=== PATIENT | female | born 1935 | race Caucasian/White ===

== ENCOUNTER 2017-06-30 16:02 | Observation (INO) | payer OTHER ==
[~2017-06-30 16:02] MED LIST: AMITIZA8 MC1 PO; ASPIRIN CHILDRE81 MG PO; ASPIRIN81 M4 PO; BENTYL20 M1 PO; CALCIUM600 M3 PO; CIPRO 500MG TA500 MG PO; CIPRO500 M1 PO; COLACE100 MG PO; DICYCLOMINE HCL10 M1 PO; DOLOBID500 MG PO; DOXYCYCLINE MO100 MG PO; FIBER CHOICE1 CTB PO; FIBER500 MG PO; FLAGYL500 MG PO; FUROSEMIDE20 MG PO; HYDRALAZINE HCL25 M1 PO; MIRALAX17 GM PO; MOXIFLOXACIN H400 M1 PO; MYCOSTATIN SUS.60 ML PO; OMEPRAZOLE20 M2 PO; OMEPRAZOLE20 MG PO; PERCOCET 325 MG1 TA2 PO; PROBIOTIC FORM1 EACH PO; PYRIDIUM200 M1 PO; SENNA PLUS 50 M1 TAB PO; SPIRIVA 18 MCG18 MCG IH; SPIRIVA18 MCG INH; TRAMADOL HCL50 M1 PO; TRAMADOL50 MG PO; VESICARE10 MG PO; VICODIN5-300 PO; VITAMIN B-121000 MC3 PO; VITAMIN D1000 IU PO; VITAMIN D1000 UNIT PO; VITAMIN D400 IU PO
--- NOTE | 2017-06-30 16:41 | ED NECK/BACK PAIN COMPLAINT ---
See Addendum History of Present Illness General Chief Complaint: Low Back Pain/Injury Stated Complaint: BIBA BACK PAIN S/P LIFTING OBJECT Source: patient, family Exam Limitations: no limitations Vital Signs & Intake/Output Vital Signs & Intake/Output Vital Signs Date Time Temp Pulse Resp B/P B/P Pulse O2 O2 Flow FiO2 Mean Ox Delivery Rate 07/02 1054 84 150/75 07/02 1045 97.9 84 20 150/75 94 Nasal 2.0L Cannula 07/02 0939 83 141/73 07/02 0851 97.9 83 20 141/73 91 Nasal 2.0L Cannula 07/02 0644 97.6 89 16 147/70 95 Room Air 2.0L 07/01 2247 97.9 89 16 133/80 07/01 2218 96.6 92 18 145/72 96 Nasal 2.0L Cannula 07/01 1835 98.1 85 18 156/74 92 Room Air 07/01 1611 97.7 91 16 152/81 07/01 1544 98.5 90 18 152/81 98 Room Air ED Intake and Output 07/02 0000 07/01 1200 Intake Total Output Total 250 Balance -250 Output, Urine 250 Allergies Coded Allergies: Penicillins (HIVES 09/24/15) Sulfa (Sulfonamide Antibiotics) (HIVES 09/24/15) erythromycin base (HIVES 02/12/16) Reconcile Medications Aspirin (Aspirin*) 81 MG TAB.CHEW 1 TAB PO DAILY Blood THinner (Reported) Bacillus Coagulans/Inulin (Probiotic Formula Capsule) 1 BILLION CELL-250 MG CAPSULE 1 CAP PO DAILY GI (Reported) Calcium (Elemental-Fr Calcarb) (Calcium) 600 MG CALCIUM (1,500 MG) TABLET 1 TAB PO DAILY SUPPLEMENT (Reported) Cholecalciferol (Vitamin D3) (Vitamin D) 1,000 UNIT TABLET 1 TAB PO DAILY SUPPLEMENT (Reported) Cyanocobalamin (Vitamin B-12) 1,000 MCG TABLET 1 TAB PO EOD SUPPLEMENT ( Reported) Dicyclomine HCl 10 MG CAPSULE 1 CAP PO Q6 GI (Reported) Hydralazine HCl 25 MG TABLET 1 TAB PO TID Hypertension Methylcellulose (Fiber) 500 MG TABLET 1 TAB PO DAILY SUPPLEMENT (Reported) Omeprazole 20 MG CAPSULE.DR 1 CAP PO BID heartburn (Reported) Tiotropium [place] (Spiriva) 18 MCG CAP.W.DEV 1 CAP INH DAILY EMPHYSEMA ( Reported) Tramadol HCl 50 MG TABLET 1 TAB PO Q6P PRN PAIN SCALE 7-10 (SEVERE) . Triage Note: BACK PAIN X 2 DAYS Triage Nurses Notes Reviewed? yes Onset: Abrupt Duration: day(s): Timing: recent history Quality/Severity: severe Location: lumbar spine Radiation: upper legs Context: lifting Loss of Consciousness: no loss of consciousness HPI: 82yo female with hx of lumbar disc disease s/p lumbar surgery years ago presents to ED complaining of low back pain after lifting an object yesterday. Patient states that she lifted the lid of her toilet and when she put the lid back she felt her lower back while. Patient complains of bilateral lower back pain, worse on left side. At times pain shoots down both legs. Patient reports pain is severe, not well-controlled with Tylenol at home. Pain limits patient's ability to walk at home. Patient had no fall during injury or no fall within the past few weeks. She denies numbness, tingling, saddle anesthesia, urinary incontinence, urinary retention, bowel incontinence. (Karon WRIGHT,Elizabeth Cortez) Past History Travel History Traveled to [place] past 21 day No Medical History Any Pertinent Medical History? 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 BROTHER (HTN). SISTER (HTN). Hx Contributory? No (Karon WRIGHT,Elizabeth Cortez) Review of Systems Review of Systems Constitutional: Reports: no symptoms. Eyes: Reports: no symptoms. Ears, Nose, Throat, Mouth: Reports: no symptoms. Respiratory: Reports: no symptoms. Cardiovascular: Reports: no symptoms. Gastrointestinal/Abdominal: Reports: no symptoms. Musculoskeletal: Reports: see HPI. Skin: Reports: no symptoms. Neurological/Psychological: Reports: see HPI. All Other Systems: Reviewed and Negative (Karon WRIGHT,Elizabeth Cortez) Physical Exam Physical Exam General Appearance: well developed/nourished, no apparent distress, alert, awake Head: atraumatic, normal appearance Eyes: Bilateral: normal appearance. Ears, Nose, Throat, Mouth: hearing grossly normal Neck: normal inspection, supple, full range of motion Respiratory: normal breath sounds, no respiratory distress, lungs clear Cardiovascular: regular rate/rhythm Gastrointestinal: normal bowel sounds, soft, non-tender, no organomegaly Back: bilateral lower back tenderness, no midline tenderness to lumbar spine Extremities: non-tender, normal range of motion Sensory: Medial Le: L4R, L4L. Top of Foot: 2: L5R, L5L. Sole of Foot: 2: SIR, CATHERINE. Neurologic/Psych: awake, alert, oriented x 3, strength 5/5 equal bilateral lower extremities Skin: intact, normal color, warm/dry Core Measures CVA/TIA Diagnosis: No (Elizabeth Roldan) Progress Differential Diagnosis: cauda equina syn, herniated disc, myofascial strain, spinal cord inj, T/L spine injury Plan of Care: Orders Procedure Date/time Status Discharge Patient 07/02 1146 Active Theraputic Activities 15 Min 07/02 UNK Complete Neuromuscular Re-Ed 15Min Ea 07/02 UNK Complete Current Medications Sig/Marcelo Start time Last Medication Dose Stop Time Status Admin Hydralazine HCl 20 MG BID 07/02 1003 AC (Apresoline) Omeprazole 20 MG DAILY AC 07/02 1003 AC 07/02 (Prilosec) 1059 Aspirin 81 MG DAILY 07/01 1000 AC 07/02 (Aspirin) 0939 Fluticasone 2 PUF BID 06/30 2333 AC 07/02 Propionate 0939 (Flovent) Lumbar CT scan shows acute L1 compression fracture. There are also subacute fractures detected on pelvis CT scan. Patient complaining of significant pain not controlled well with Tylenol at home. Attempted ambulation patient was unsuccessful here in the emergency department, she could not be assisted to sit or stand due to her pain. This patient likely requires physical therapy and rehabilitation given her recent L1 compression fracture. Spoke with case management regarding this patient. Based on patient's insurance she does not require 3 midnight stays here in the hospital prior to rehabilitation. Patient requires physical therapy evaluation tomorrow morning and case management consultation prior to rehabilitation placement. We'll place patient in ED observation. The patient was signed out to Dr. Brumfield for ED observation pending PT and case management consult tomorrow morning. Diagnostic Imaging: Viewed by Me: Radiology Read. Discussed w/RAD: Radiology Read. Radiology Impression: PATIENT: PORFIRIO HUSSEIN PRESENT AGE: 82 PATIENT ACCOUNT NO: [id number] : 34 LOCATION: [facility] ([place] ORDERING PHYSICIAN: Elizabeth WRIGHT SERVICE DATE: 06/30/17 EXAM TYPE: CAT - CT PELVIS WO IV CONTRAST EXAMINATION: CT PELVIS WITHOUT CONTRAST CLINICAL INFORMATION: Back pain after lifting. COMPARISON: CT images of the lumbar spine from 01/04/2017. CT images of the pelvis from 02/12/2016. TECHNIQUE: Noncontrast multidetector CT imaging examination of the pelvis was performed using 0.625 mm collimation. DLP: 436 mGy-cm FINDINGS: Findings in the lumbar spine are dictated separately. Severe, diffuse osteoporosis. Subacute, healing fractures of bilateral sacral ala and right iliac bone located adjacent to the sacroiliac joint. Chronic osteoarthritis of the sacroiliac joints. Subacute insufficiency fracture within trabecular bone of the left lower iliac bone, located approximately 1-1.5 cm above the level of the roof of the acetabulum. Subacute, displaced, comminuted fracture of the right pubic bone with subarticular bone resorption at the pubic symphysis, and heterotopic ossification extending along the anterior aspect of the adjacent right obturator externus muscle. The components of the left hip hemiarthroplasty are intact and the visualized proximal femurs are intact. No hip joint effusion. Inferior vena cava filter is partially included in the [id number]. There is dense atherosclerotic calcification of the aorta and iliac arteries without aneurysm. No pelvic free fluid or hematoma. Status post hysterectomy. Urinary bladder has normal wall thickness. The visualized loops of bowel are unremarkable. IMPRESSION: 1. Chronic, severe osteoporosis. 2. Subacute, healing insufficiency fractures of the bilateral sacral ala and right iliac bone adjacent to the sacroiliac joint. Also, insufficiency fractures are present within the inferior left iliac bone and right pubic bone, which is displaced and comminuted. DICTATED BY: Nate Tang MD DATE/TIME DICTATED:06/30/171799 PSYCHOLOGY INTERN:HILDA DATE/TIME TRANSCRIBED:06/30/171799 CONFIDENTIAL, DO NOT COPY WITHOUT APPROPRIATE AUTHORIZATION. 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 07/02/2017 7:23:13 AM patient signed out to me by Dr. 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 (Сергей Brumfield MD) Departure Departure Disposition: STILL A PATIENT Condition: Stable Clinical Impression Primary Impression: Compression fracture of L1 lumbar vertebra Qualifiers: Encounter type: initial encounter Fracture type: closed Qualified Code: S32.010A - Wedge compression fracture of first lumbar vertebra, initial encounter for closed fracture Secondary Impressions: Back pain Qualifiers: Back pain location: low back pain Chronicity: acute Back pain laterality: midline Gait instability Referrals: Ruddy PELLETIER,Kang Reynolds (PCP/Family) Departure Forms: Customer Survey General Discharge Information Observation Note Spoke With: Сергей Brumfield MD Physician Advisor Notified: RUBEN PELLETIER,RADHA Padron Place Patient In: ED Observation Rationale for Observation: My rational for observation is as follows [acute L1 compression fracture with gait instability requiring pain management, physical therapy consults, his management consults, rehabilitation facility placement, this patient does not require a 3 midnights today prior to rehabilitation placement]. (Elizabeth Roldan) Departure Comments 07/01/17 10 AM Patient was signed out to me by Dr. Brumfield at 7 AM. She is being observed for pain control. She is currently pending assistance with disposition by case management. (Сергей Bettencourt DO) PA/WOOD PATTERN MAKER Co-Sign Statement Statement: ED Attending supervision documentation- [X] I saw and evaluated the patient. I have also reviewed all the pertinent lab results and diagnostic results. I agree with the findings and the plan of care as documented in the PA's/WOOD PATTERN MAKER's documentation. [] I have reviewed the ED Record and agree with the PA's/WOOD PATTERN MAKER's documentation. [] Additions or exceptions (if any) to the PAs/WOOD PATTERN MAKER's note and plan are summarized below: [] (Se PELLETIER,Tommy Berkowitz) ED Attending Observation Initial Observation Note: I have seen and personally examined PORFIRIO HUSSEIN on 07/02/17 at 1145. I agree with the current emergency department documentation. The disposition (admission or discharge) is uncertain at this time, she needs a period of observation for the following reason(s): The ED Nurse caring for this patient has been personally informed as to what the patient is being observed for. Observation Re-Evaluation: I have reevaluated PORFIRIO HUSSEIN on 07/02/17 at 1145. The physical findings that support the continued need to observe this patient include . Observation Discharge: I have reevaluated PORFIRIO HUSSEIN on 07/02/17 at 1145. The patient is stable: (): Stable for discharge (): To be admitted to Nursing Floor (): To be placed in Observation on Nursing Floor ([x]): For transfer to other facility The patient was being observed for severe back pain and inability to ambulate secondary to compression fracture. As a result of that observation, I have determined patient will require transfer to rehabilitation facility. (Brissa PELLETIER,Сергей Martinez) Initial Observation Note: I have seen and personally examined PORFIRIO HUSSEIN on 07/01/17 at 19:45 I agree with the current emergency department documentation. The disposition (admission or discharge) is uncertain at this time, she needs a period of observation for the following reason(s): PT WITH COMPRESSION FRACTURE... PT TO BE GIVEN ORAL PAIN MEDS AND EVALUATED BY PT AND CASE MANAGEMENT FOR PLACEMENT. The ED Nurse caring for this patient has been personally informed as to what the patient is being observed for. (Se PELLETIER,Tommy Berkowitz)
--- NOTE | 2017-06-30 18:02 | CT SCAN REPORT ---
EXAMINATION: CT LUMBAR SPINE WITHOUT CONTRAST CLINICAL INFORMATION: Back pain following lifting object. COMPARISON: CT from 01/04/2017. TECHNIQUE: Helical non-contrast CT images were obtained through the lumbar spine and 1.25 and 2.5 mm axial reconstructions were reviewed along with sagittal and coronal MPRs. DLP: 290 mGy-cm FINDINGS: There is an acute compression fracture with a mild loss of vertebral body height involving the L1 vertebral body. Mild retropulsion of the superior endplate is evident. There are mild paraspinal soft tissue inflammatory changes. There is a stable moderate rightward curvature of the lumbar spine. Extensive spondylosis is again visible from the L2 to the L5 levels with vacuum disc phenomenon, severe disc space narrowing, and endplate osteophyte formation. No new subluxations are seen. Significant central canal stenosis at L2-L3 and L3-L4 is unchanged. Multilevel foraminal narrowing is also again visible due to hypertrophic facet arthropathy, endplate spurring, and diffuse disc bulges. There is a moderate-sized gastric hiatal hernia. Mild subsegmental atelectasis is visible in the right lung base. Heterogeneous linear sclerotic changes are noted in the sacrum is seen in the sequela of prior fractures. There are moderate degenerative changes of the SI joints. Moderate atherosclerotic calcification lines the adams of the abdominal aorta which is tortuous. A an IVC filter is in place. IMPRESSION: Acute compression fracture deformity at L1 with mild bony retropulsion, mild loss of vertebral body height, and paraspinal soft tissue inflammatory changes. Severe spondylosis and degenerative spinal curvature as previously noted. Multilevel facet arthropathy and central canal stenosis, most severe at L2-L3 at L3-L4. Linear sclerotic change in the sacrum bilaterally which were not present previously, however, there are chronic and suggest the sequela of prior sacral fractures.
--- NOTE | 2017-06-30 18:13 | CT SCAN REPORT ---
EXAMINATION: CT PELVIS WITHOUT CONTRAST CLINICAL INFORMATION: Back pain after lifting. COMPARISON: CT images of the lumbar spine from 01/04/2017. CT images of the pelvis from 02/12/2016. TECHNIQUE: Noncontrast multidetector CT imaging examination of the pelvis was performed using 0.625 mm collimation. DLP: 436 mGy-cm FINDINGS: Findings in the lumbar spine are dictated separately. Severe, diffuse osteoporosis. Subacute, healing fractures of bilateral sacral ala and right iliac bone located adjacent to the sacroiliac joint. Chronic osteoarthritis of the sacroiliac joints. Subacute insufficiency fracture within trabecular bone of the left lower iliac bone, located approximately 1-1.5 cm above the level of the roof of the acetabulum. Subacute, displaced, comminuted fracture of the right pubic bone with subarticular bone resorption at the pubic symphysis, and heterotopic ossification extending along the anterior aspect of the adjacent right obturator externus muscle. The components of the left hip hemiarthroplasty are intact and the visualized proximal femurs are intact. No hip joint effusion. Inferior vena cava filter is partially included in the [id number]. There is dense atherosclerotic calcification of the aorta and iliac arteries without aneurysm. No pelvic free fluid or hematoma. Status post hysterectomy. Urinary bladder has normal wall thickness. The visualized loops of bowel are unremarkable. IMPRESSION: 1. Chronic, severe osteoporosis. 2. Subacute, healing insufficiency fractures of the bilateral sacral ala and right iliac bone adjacent to the sacroiliac joint. Also, insufficiency fractures are present within the inferior left iliac bone and right pubic bone, which is displaced and comminuted.
[2017-06-30 21:17] LABS: ABSOLUTE BASOPHIL COUNT 0.1 /CUMM (0.0-0.2); ABSOLUTE EOSINOPHIL COUNT 0 /CUMM (0.0-0.7); ABSOLUTE GRANULOCYTE CT 8.8 /CUMM (1.4-6.5); ABSOLUTE LYMPH COUNT 1.1 /CUMM (1.2-3.4); ABSOLUTE MONOCYTE COUNT 1.1 /CUMM (0.10-0.60); BASOPHIL % 1.3 % (0.0-2.0); EOSINOPHIL % 0.3 % (0-5); GRANULOCYTE % 78.8 % (42.2-75.2); HEMATOCRIT 32.2 % (37-47); MEAN CORPUSCULAR HGB 26.9 PG (27.0-31.0); MEAN CORPUSCULAR HGB CONC 32.5 G/DL (33.0-37.0); MEAN CORPUSCULAR VOLUME 82.6 FL (81.0-99.0); MEAN PLATELET VOLUME 7.9 FL (7.4-10.4); PLATELET COUNT 381 /CUMM (130-400); RBC DISTRIBUTION WIDTH 16.9 % (11.5-14.5); WHITE BLOOD CELL COUNT 11.2 /CUMM (4.8-10.8)
--- NOTE | 2017-06-30 22:55 | History & Physical ---
General Information and HPI Allergies/Medications Allergies: Coded Allergies: Penicillins (HIVES 09/24/15) Sulfa (Sulfonamide Antibiotics) (HIVES 09/24/15) erythromycin base (HIVES 02/12/16) Home Med list Aspirin (Aspirin*) 81 MG TAB.CHEW 1 TAB PO DAILY Blood THinner (Reported) Bacillus Coagulans/Inulin (Probiotic Formula Capsule) 1 BILLION CELL-250 MG CAPSULE 1 CAP PO DAILY GI (Reported) Calcium (Elemental-Fr Calcarb) (Calcium) 600 MG CALCIUM (1,500 MG) TABLET 1 TAB PO DAILY SUPPLEMENT (Reported) Cholecalciferol (Vitamin D3) (Vitamin D) 1,000 UNIT TABLET 1 TAB PO DAILY SUPPLEMENT (Reported) Cyanocobalamin (Vitamin B-12) 1,000 MCG TABLET 1 TAB PO EOD SUPPLEMENT ( Reported) Dicyclomine HCl 10 MG CAPSULE 1 CAP PO Q6 GI (Reported) Hydralazine HCl 25 MG TABLET 1 TAB PO TID Hypertension Methylcellulose (Fiber) 500 MG TABLET 1 TAB PO DAILY SUPPLEMENT (Reported) Omeprazole 20 MG CAPSULE.DR 1 CAP PO BID heartburn (Reported) Tiotropium [place] (Spiriva) 18 MCG CAP.W.DEV 1 CAP INH DAILY EMPHYSEMA ( Reported) Tramadol HCl 50 MG TABLET 1 TAB PO Q6P PRN PAIN SCALE 7-10 (SEVERE) . 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 BROTHER (HTN). SISTER (HTN). Psychosocial History Who Do You Live With? self Services at Home: None Primary Language: Arabic Functional Ability ADLs Independent: dressing, eating, toileting, bathing. Ambulation: independent IADLs Independent: shopping, housework, finances, food prep, telephone, transportation , medication admin. Core Measures/Misc (01/27) Cerebrovascular Accident CVA/TIA Diagnosis: No
[2017-07-02 10:54] VITALS: BP 150/75
== END 2017-07-02 13:07 ==
LOC: ERH 16:02 → ERHI 22:45
PROVIDERS: Physician Assistant
DX: S32.010A Wedge compression fracture of first lumbar vertebra, initial encounter for closed fracture (principal); M54.5 Low back pain; Z79.82 Long term (current) use of aspirin; I10 Essential (primary) hypertension; J44.9 Chronic obstructive pulmonary disease, unspecified; K52.9 Noninfective gastroenteritis and colitis, unspecified; K58.9 Irritable bowel syndrome, unspecified; Z85.828 Personal history of other malignant neoplasm of skin; R26.9 Unspecified abnormalities of gait and mobility; J43.9 Emphysema, unspecified; K21.9 Gastro-esophageal reflux disease without esophagitis
CPT/HCPCS: 81001; 93005; 93010; 97112-GP; 97161-GP; 97530-GP; G0378; J3490